=== PATIENT | male | born 1990 | race Caucasian/White ===

== ENCOUNTER 2025-06-26 15:06 | Emergency (ER) | payer OTHER, SELFPAY ==
[2025-06-26 15:52] VITALS: BP 120/83; PULSE 60; RESP 17; TEMP 36.6; O2SAT 99; BMI 23.1
--- NOTE | 2025-06-26 20:44 | ED_ITS ---
HPI - Psych <Jeancarlos Kent MD - Last Filed: 06/26/25 22:40> General Chief Complaint: Psychiatric Symptoms Stated Complaint: adderal withdrawal, post manic episode, bipolar Time Seen by Provider: 06/26/25 20:38 Source: patient Mode of arrival: Family Vehicle History of Present Illness HPI Narrative: This is a 35-year-old white male presents to the emergency room stating that a few days ago he had severe manic episode for which he is coming off of and now has some suicidal thoughts. Patient denied plan patient denied homicidal ideation patient denied any auditory hallucinations. Patient feels like he is withdrawing from the Adderall. Patient deny any other somatic symptoms. Related Data Allergies Allergy/AdvReac Type Severity Reaction Status Date / Time HYDROCODONE Allergy Mild Uncoded 06/26/25 15:52 Review of Systems <Jeancarlos Kent MD - Last Filed: 06/26/25 22:40> Review of Systems Narrative: GENERAL: Denies chills, fatigue, malaise, fever, sweats. HEENT: Denies sinus pain, ear pain, sore throat, difficulty swallowing, dizziness. RESPIRATORY: Denies dyspnea, cough, wheezing, hemoptysis, sputum. CARDIOVASCULAR: Denies chest pain, palpitations, orthopnea, edema, GASTROINTESTINAL: Denies nausea, vomiting, abdominal pain, diarrhea, constipation, melena. : Denies dysuria, frequency, incontinence, hematuria, urinary retention. MUSCULOSKELETAL: denies weakness, joint pain, or bony pain SKIN: Denies rash, skin lesions, or other NEUROLOGIC: Denies weakness, headache, numbness, change in speech, confusion, seizures, incoordination. PSYCHIATRIC: See HPI 12 point review of systems is negative except for those stated above Patient History <Jeancarlos Kent MD - Last Filed: 06/26/25 22:40> Social History Smoking Status: Current every day smoker Smoking Status: Current every day smoker tobacco type: vaping Alcohol type: beer Exam <Jeancarlos Kent MD - Last Filed: 06/26/25 22:40> Narrative Exam Narrative: GENERAL: [] year old patient appears stated age. Well-developed patient, in mild distress. HEAD: Atraumatic. Normocephalic. EYES: Pupils equal round and reactive. Extraocular motions intact. No scleral icterus. No injection or drainage. ENT: Nose without bleeding, purulent drainage. Throat without erythema, tonsillar hypertrophy or exudate. Airway patent. NECK: Trachea midline. Non tender CARDIOVASCULAR: Regular rate and rhythm without murmurs, gallops, or rubs. RESPIRATORY: Clear to auscultation. Breath sounds equal bilaterally. No wheezes, rales, or rhonchi. GASTROINTESTINAL: Abdomen soft, non-tender, nondistended. EXTREMITIES: No edema or joint tenderness. BACK: Nontender without deformity or crepitance. No flank tenderness. NEURO: AOx3. SKIN: No rash or erythema of visible areas Psych: On direct questioning patient admits to suicide ideation Initial Vital Signs Initial Vital Signs: Vital Signs Temperature 97.9 F 06/26/25 15:52 Pulse Rate 60 06/26/25 15:52 Respiratory Rate 17 06/26/25 15:52 Blood Pressure 120/83 06/26/25 15:52 Pulse Oximetry 99 06/26/25 15:52 Oxygen Delivery Method Room Air 06/26/25 15:52 <Hellen Deras DO - Last Filed: 06/27/25 01:28> Initial Vital Signs Initial Vital Signs: Vital Signs Temperature 97.9 F 06/26/25 15:52 Pulse Rate 60 06/26/25 15:52 Respiratory Rate 17 06/26/25 15:52 Blood Pressure 120/83 06/26/25 15:52 Pulse Oximetry 99 06/26/25 15:52 Oxygen Delivery Method Room Air 06/26/25 15:52 Course <Jeancarlos Kent MD - Last Filed: 06/26/25 22:40> Orders Ordered: ED Orders 06/26/25 20:51 Acetaminophen Stat Complete Blood Count AUTO DIFF Stat Comprehensive Metabolic Panel Stat Ethanol (ETOH) Stat Salicylate Stat Vital Signs Vital signs: Vital Signs - 8 hr 06/26/25 21:00 Pulse Rate 74 Respiratory Rate 16 Blood Pressure 124/84 Pulse Oximetry 98 Oxygen Delivery Method Room Air <Hellen Deras DO - Last Filed: 06/27/25 01:28> Orders Ordered: ED Orders 06/26/25 20:51 Acetaminophen Stat Complete Blood Count AUTO DIFF Stat Comprehensive Metabolic Panel Stat Ethanol (ETOH) Stat Salicylate Stat Vital Signs Vital signs: Vital Signs - 8 hr 06/26/25 21:00 Pulse Rate 74 Respiratory Rate 16 Blood Pressure 124/84 Pulse Oximetry 98 Oxygen Delivery Method Room Air MDM - Psych <Jeancarlos Kent MD - Last Filed: 06/26/25 22:40> Lab Data 06/26/25 20:51 06/26/25 20:51 Labs: Lab Results 06/26/25 Range/Units 20:51 WBC 7.6 (4.5-11.0) X10^3/uL RBC 4.63 (4.5-5.9) X10^6/uL Hgb 15.5 (13.5-17.5) g/dL Hct 43.4 (41-53) % MCV 93.7 (80-100) fL MCH 33.6 (26-34) PG MCHC 35.8 (30-36) % RDW 13.1 (11.6-14.8) % Plt Count 255 (150-400) X10^3/uL Neut % (Auto) Not Reportable Lymph % (Auto) Not Reportable [place] % (Auto) Not Reportable Eos % (Auto) Not Reportable Baso % (Auto) Not Reportable Lymph # (Auto) Not Reportable [place] # (Auto) Not Reportable Baso # (Auto) Not Reportable Total Counted 100 Seg Neutrophils % 58.0 (38-70) % Lymphocytes % (Manual) 35.0 (25-45) % Monocytes % (Manual) 2.0 (2-11) % Eosinophils % (Manual) 5.0 H (2-4) % Neutrophils # (Manual) [id number] ([id number]) /uL Plt Morphology Comment RBC Morphology Normal morphology Sodium 138 (137-145) mmol/L Potassium 3.6 (3.4-5.1) mmol/L Chloride 100 (98-107) mmol/L Carbon Dioxide 27 (22-32) mmol/L BUN 11 (9-20) mg/dL Creatinine 0.87 (0.66-1.25) mg/dL Estimated GFR > 60 (>60) mL/min BUN/Creatinine Ratio 12.6 (6-22) Glucose 124 H (70-99) mg/dL Calcium 9.4 (8.4-10.2) mg/dL Total Bilirubin 0.6 (0.2-1.3) mg/dL AST 24 (17-59) IU/L ALT 21 (<50) IU/L Alkaline Phosphatase 63 (38-126) U/L Total Protein 8.1 (6.3-8.2) g/dL Albumin 5.1 H (3.5-5.0) g/dL Globulin 3.0 (1.7-4.1) g/dL Albumin/Globulin Ratio 1.7 (1.0-2.8) Salicylates < 1.0 (<20) mg/dL Acetaminophen < 10 (10-30) ug/mL Ethyl Alcohol < 10 (<10) mg/dL Urine Dip Bedside Urine Glucose Negative Bedside Urine Bilirubin - Negative Bedside Urine Ketone - Negative Urine Specific [place] 1.015 Bedside Urine Occult Blood - Negative Bedside Urine pH 6.0 Bedside Urine Protein - Negative Bedside Urine Urobilinogen - Negative Bedside Urine Nitrite - Negative Bedside Urine Leukocytes - Negative Esterase MDM Narrative Medical decision making narrative: The patient had a CBC within normals chemistry within normal limits aspirin Tylenol alcohol levels were negative still pending is the urine drug screen. Once this comes back the patient will be medically cleared and we ready for a psych evaluation. I was signed out the patient to the oncoming doctor Dr. Deras for final disposition. Differential diagnosis is suicide ideation homicidal ideation depression <Hellen Deras, DO - Last Filed: 06/27/25 01:28> Lab Data Labs: Lab Results 06/26/25 Range/Units 20:51 WBC 7.6 (4.5-11.0) X10^3/uL RBC 4.63 (4.5-5.9) X10^6/uL Hgb 15.5 (13.5-17.5) g/dL Hct 43.4 (41-53) % MCV 93.7 (80-100) fL MCH 33.6 (26-34) PG MCHC 35.8 (30-36) % RDW 13.1 (11.6-14.8) % Plt Count 255 (150-400) X10^3/uL Neut % (Auto) Not Reportable Lymph % (Auto) Not Reportable [place] % (Auto) Not Reportable Eos % (Auto) Not Reportable Baso % (Auto) Not Reportable Lymph # (Auto) Not Reportable [place] # (Auto) Not Reportable Baso # (Auto) Not Reportable Total Counted 100 Seg Neutrophils % 58.0 (38-70) % Lymphocytes % (Manual) 35.0 (25-45) % Monocytes % (Manual) 2.0 (2-11) % Eosinophils % (Manual) 5.0 H (2-4) % Neutrophils # (Manual) [id number] ([id number]) /uL Plt Morphology Comment RBC Morphology Normal morphology Sodium 138 (137-145) mmol/L Potassium 3.6 (3.4-5.1) mmol/L Chloride 100 (98-107) mmol/L Carbon Dioxide 27 (22-32) mmol/L BUN 11 (9-20) mg/dL Creatinine 0.87 (0.66-1.25) mg/dL Estimated GFR > 60 (>60) mL/min BUN/Creatinine Ratio 12.6 (6-22) Glucose 124 H (70-99) mg/dL Calcium 9.4 (8.4-10.2) mg/dL Total Bilirubin 0.6 (0.2-1.3) mg/dL AST 24 (17-59) IU/L ALT 21 (<50) IU/L Alkaline Phosphatase 63 (38-126) U/L Total Protein 8.1 (6.3-8.2) g/dL Albumin 5.1 H (3.5-5.0) g/dL Globulin 3.0 (1.7-4.1) g/dL Albumin/Globulin Ratio 1.7 (1.0-2.8) Salicylates < 1.0 (<20) mg/dL Acetaminophen < 10 (10-30) ug/mL Ethyl Alcohol < 10 (<10) mg/dL Urine Dip Bedside Urine Glucose Negative Bedside Urine Bilirubin - Negative Bedside Urine Ketone - Negative Urine Specific [place] 1.015 Bedside Urine Occult Blood - Negative Bedside Urine pH 6.0 Bedside Urine Protein - Negative Bedside Urine Urobilinogen - Negative Bedside Urine Nitrite - Negative Bedside Urine Leukocytes - Negative Esterase MDM Narrative Medical decision making narrative: The patient had a CBC within normals chemistry within normal limits aspirin Tylenol alcohol levels were negative still pending is the urine drug screen. Once this comes back the patient will be medically cleared and we ready for a psych evaluation. I was signed out the patient to the oncoming doctor Dr. Deras for final disposition. Differential diagnosis is suicide ideation homicidal ideation depression. 06/26/25 Dr. Deras: patient signed out to myself by Dr. Kent. patient is seen and evaluated by myself. UDS was still pending patient's labs otherwise were overall appropriate including CBC, aspirin, Tylenol and ETOH. chemistries showed a glucose of 124 and an albumin of 5.1. Patient had expressed some suicidal thoughts after discussion he is requesting discharge home has no intent, plan or homicidal ideation currently in place. Notes that he had recently stopped Adderall, Notes that he did have a manic episode was drinking too much alcohol as well. Patient states he did recently restart his mood stabilizers in the last 5 days and has been very helpful has help with the suicidal thoughts and he feels much safer at this time. did discuss staying to talk with social work but at this time patient we would like to return home and felt appropriate for discharge. He contracts for safety. He will be living here locally was [place] in before states he can follow up with his primary care physician regarding his regular medications but does have an appointment with Dr. Lynn locally in place already. he is open to having the social work reach out to him. Discharge Plan Departure Patient Disposition: Home Clinical Impression: Suicidal ideation Instructions: DI for Suicidal Ideation-Adult Activity Restrictions/Additional Instructions: I hope you continue to feel improved. if at any time you feel you need to be seen please return to the emergency department. if he would like to speak with our director of social media marketing I have left a message for them to reach out to you but if you have not heard from them you can call the emergency department at [phone], our director of social media marketing is typically available between 11:00 a.m. and 7:00 p.m. most days of the week. Please continue your mood stabilizers as prescribed. If you're feeling suicidal or having suicidal thoughts, contact the suicide hotline ( this is also the number for self referral for mental health): . please return or call 911 if you are having persistent or worsening thoughts of harming yourself, thoughts of harming others, any hallucinations or other new or concerning changes. Referrals: Miscellaneous,Doctor, MD [Primary Care Provider, Medical] Lucas Lynn DO [Physician, Family Practice] Stand Alone Forms: Patient Portal/API
[2025-06-26 21:00] VITALS: BP 124/84; PULSE 74; RESP 16; O2SAT 98
[2025-06-26 21:07] LABS: Hematocrit 43.4 % (41-53); Hemoglobin 15.5 g/dL (13.5-17.5); Mean Corpuscular HGB Conc 35.8 % (30-36); Mean Corpuscular Hemoglobin 33.6 PG (26-34); Mean Corpuscular Volume 93.7 fL (80-100); Platelet Count 255 X10^3/uL (150-400)
[2025-06-26 21:10] LABS: Acetaminophen < 10 ug/mL (10-30); Alanine Aminotransferase 21 IU/L (<50); Albumin 5.1 g/dL (3.5-5.0); Albumin Globulin Ratio 1.7 (1.0-2.8); Alkaline Phosphatase 63 U/L (38-126); Blood Urea Nitrogen 11 mg/dL (9-20); Calcium 9.4 mg/dL (8.4-10.2); Carbon Dioxide 27 mmol/L (22-32); Chloride 100 mmol/L (98-107); Estimated Glomerular Filt Rate > 60 mL/min (>60); Ethanol (ETOH) < 10 mg/dL (<10); Globulin 3.0 g/dL (1.7-4.1); Glucose 124 mg/dL (70-99); HEMOLYSIS < 15 (0-50); Potassium 3.6 mmol/L (3.4-5.1); Salicylate < 1.0 mg/dL (<20); Sodium 138 mmol/L (137-145); Total Protein 8.1 g/dL (6.3-8.2)
[2025-06-26 21:24] LABS: Add Manual Diff / Slide Review YES
[2025-06-26 22:03] LABS: Eosinophils Percent Manual 5.0 % (2-4); Lymphocytes Percent Manual 35.0 % (25-45); Monocytes Percent Manual 2.0 % (2-11); Neutrophils Absolute Manual 4408 /uL (3000-5900); RBC Morphology Normal Morphology; Segmented Neutrophils Percent 58.0 % (38-70); Total Cells Counted 100
--- NOTE | 2025-06-27 14:15 | CM.SWNOTE ---
ED FOAM RUBBER FABRICATOR Follow Up Note RN informs FOAM RUBBER FABRICATOR that resources for basic needs and care home were provided to patient, it is reported that patient has good support from a friend and he is staying at a friend's house. FOAM RUBBER FABRICATOR attempts to call patient, patient's mailbox is full and FOAM RUBBER FABRICATOR is unable to leave a VM. Lesli Bolivar, TORQUE TESTER
== END 2025-06-27 00:05 | disposition home or self-care (01) ==
PROVIDERS: Emergency Medicine; Emergency Provider Emergency Medicine
DX: R45.851 Suicidal ideations (principal)
CPT/HCPCS: 36415; 80053; 80320; 80329; 81003; 85007; 85025; 99283; G0480